=== PATIENT | male | born 1955 | race Two or more races ===

== ENCOUNTER 2018-12-10 14:04 | Outpatient (CLI) | payer OTHER | END 2018-12-10 14:10 | disposition home or self-care (01) | LOC: LAB 14:04 | DX: R97.20 Elevated prostate specific antigen [PSA] (principal) ==

== ENCOUNTER 2019-07-09 07:26 | Outpatient (CLI) | payer OTHER | END 2019-07-09 07:32 | disposition home or self-care (01) | LOC: RX STUDY 07:26 | DX: R49.0 Dysphonia (principal); R13.11 Dysphagia, oral phase ==